=== PATIENT | female | born 1940 | race Caucasian/White ===

== ENCOUNTER 2018-05-05 18:07 | Inpatient (IN) | payer OTHER ==
[~2018-05-05] VITALS: Ht 152.4 cm; Wt 55.9 kg
[~2018-05-05 18:07] MED LIST: ADVAIR 100-501 EACH IH; ADVAIR 250/501 DISK IH; AMLODIPINE BESY10 MG PO; APRESOLINE25 MG PO; AVELOX400 MG PO; DONEPEZIL HCL5 MG PO; FLORASTOR250 MG PO; INDERIDE 40/1 TABLET PO; LEVAQUIN500 MG PO; LITE COAT ASPI325 M1 PO; LITE COAT ASPI325 MG PO; NORVASC5 MG PO; PLAVIX75 MG PO; PRAVASTATIN SOD10 MG PO; PROVENTIL2.5 MG/3 M IH; SPIRIVA1 INHALATI IH; VITAMIN B12 100MCG PO; ZESTRIL,PRINIV2.5 MG PO
[2018-05-05] MEDS ORDERED: NAMZARIC 28 MG1 EACH PO (18:30)
[2018-05-05] MEDS ORDERED: VENTOLIN HFA18 GM IH (18:32)
[2018-05-05] MEDS ORDERED: HYDROCHLOROTHIA50 MG PO (18:33)
[2018-05-05 19:20] LABS: HEMATOCRIT 35.8 % (36.0-46.0); HEMOGLOBIN 11.6 G/DL (11.9-15.5); MCHC 32.4 G/DL (30.0-36.0); MCV 83.4 FL (83-99); PLATELET COUNT 118 K/uL (156-360); RBC DIS.WIDTH-CV 15.8 % (11.8-14.6); RBC DIS.WIDTH-SD 47.7 % (39-53); RED BLOOD COUNT 4.29 M/uL (3.80-5.20); WHITE BLOOD COUNT 5.9 K/uL (4.1-10.2)
[2018-05-05 19:42] LABS: APPEARANCE CLEAR ((CLEAR)); BILIRUBIN NEGATIVE; BLOOD NEGATIVE; COLOR YELLOW ((YELLOW)); GLUCOSE (STRIP) NEGATIVE; KETONES NEGATIVE; LEUKOCYTES NEGATIVE; NITRITE NEGATIVE; PROTEIN (STRIP) NEGATIVE; SPECIFIC GRAVITY 1.021 (1.000-1.030); UCUL ADDED? NO
[2018-05-05 19:42] LABS: CHLORIDE 109 mEq/L (99-109); POTASSIUM 3.6 mEq/L (3.7-5.4); SODIUM 146 mEq/L (136-147)
[2018-05-05 19:44] LABS: GLUCOSE 138 mg/dL (70-99)
[2018-05-05 19:48] LABS: CREATININE 0.7 mg/dL (0.6-1.3); GFR ESTIMATE (CALCULATED) > 59 mL/min/
[2018-05-05 19:49] LABS: UREA NITROGEN (BUN) 24 mg/dL (9-23)
[2018-05-05 21:15] LABS: ALBUMIN 3.5 g/dL (3.2-4.8)
[2018-05-05 21:18] LABS: TOTAL PROTEIN 6.7 g/dL (6.4-8.3)
[2018-05-05 21:20] LABS: TOTAL BILIRUBIN 0.3 mg/dL (0.0-1.0)
[2018-05-05 21:21] LABS: ALKALINE PHOSPHATASE 103 IU/L (3-129)
[2018-05-05 21:23] LABS: AST (GOT) 17 IU/L (2-34); DIRECT BILIRUBIN 0.1 mg/dL (0.0-0.3)
[2018-05-05 21:24] LABS: ALT (GPT) 8 IU/L (3-49)
[2018-05-05] MEDS ORDERED: NORVASC10 MG PO (23:36)
[2018-05-06 00:12] VITALS: BP 171/83
[2018-05-06 06:06] LABS: HEMATOCRIT 33.2 % (36.0-46.0); HEMOGLOBIN 10.7 G/DL (11.9-15.5); MCH 26.8 PG (29.0-34.0); MCHC 32.2 G/DL (30.0-36.0); PLATELET COUNT 105 K/uL (156-360); RBC DIS.WIDTH-CV 15.7 % (11.8-14.6); RBC DIS.WIDTH-SD 47.8 % (39-53); WHITE BLOOD COUNT 4.9 K/uL (4.1-10.2)
[2018-05-06 06:29] LABS: CHLORIDE 107 MEQ/L (99-109); CREATININE 0.5 MG/DL (0.6-1.3); GFR ESTIMATE (CALCULATED) > 59 mL/min/; POTASSIUM 3.2 MEQ/L (3.7-5.4); SODIUM 141 MEQ/L (136-147); UREA NITROGEN (BUN) 15 mg/dL (9-23)
[2018-05-06 06:31] LABS: GLUCOSE 86 mg/dL (70-99)
[2018-05-06 07:54] VITALS: BP 186/80
[2018-05-06 08:35] LABS: THYROTROPIN (TSH) 1.8 MIU/L (0.4-5.5)
[2018-05-06 08:38] LABS: FOLIC ACID (FOLATE) 6.1 NG/ML (5.0-22.0)
[2018-05-06 09:14] LABS: MAGNESIUM 1.6 mg/dl (1.3-2.7)
[2018-05-06 10:50] VITALS: BP 174/80
[2018-05-06 12:10] VITALS: BP 144/64
[2018-05-06 16:44] VITALS: BP 144/67
[2018-05-06 22:51] VITALS: BP 163/75
[2018-05-07 07:46] VITALS: BP 166/76
[2018-05-07 16:20] VITALS: BP 116/57
[2018-05-08 00:12] VITALS: BP 136/62
[2018-05-08 06:13] LABS: HEMATOCRIT 34.1 % (36.0-46.0); MCH 26.7 PG (29.0-34.0); MCHC 32.3 G/DL (30.0-36.0); MCV 82.8 FL (83-99); PLATELET COUNT 106 K/uL (156-360); RBC DIS.WIDTH-CV 15.9 % (11.8-14.6); RBC DIS.WIDTH-SD 47.9 % (39-53); RED BLOOD COUNT 4.12 M/uL (3.80-5.20); WHITE BLOOD COUNT 6.3 K/uL (4.1-10.2)
[2018-05-08 06:34] LABS: CHLORIDE 105 MEQ/L (99-109); CREATININE 0.6 MG/DL (0.6-1.3); GFR ESTIMATE (CALCULATED) > 59 mL/min/; GLUCOSE 94 mg/dL (70-99); POTASSIUM 3.3 MEQ/L (3.7-5.4); SODIUM 142 MEQ/L (136-147); UREA NITROGEN (BUN) 14 mg/dL (9-23)
[2018-05-08 07:05] VITALS: BP 157/68
[2018-05-08 15:34] VITALS: BP 121/59
[2018-05-09 00:25] VITALS: BP 123/63
[2018-05-09 06:06] LABS: BASOPHIL (%) 0.5 % (0-1); EOSINOPHIL COUNT 0.1 K/uL (0-0.3); HEMATOCRIT 35.3 % (36.0-46.0); HEMOGLOBIN 11.2 G/DL (11.9-15.5); IMMATURE GRANULOCYTE (%) 0.2 % (0.0-0.7); LYMPHOCYTE (%) 15.2 % (15-42); LYMPHOCYTE COUNT 0.9 K/uL (1.0-2.8); MCH 26.7 PG (29.0-34.0); MCHC 31.7 G/DL (30.0-36.0); MCV 84.2 FL (83-99); MONOCYTE (%) 7.4 % (3-12); MONOCYTE COUNT 0.5 K/uL (0-0.8); NEUTROPHIL (%) 75.7 % (45-76); NEUTROPHIL COUNT 4.6 K/uL (1.8-6.4); PLATELET COUNT 110 K/uL (156-360); RBC DIS.WIDTH-CV 16.1 % (11.8-14.6); RBC DIS.WIDTH-SD 49.9 % (39-53); RED BLOOD COUNT 4.19 M/uL (3.80-5.20); WHITE BLOOD COUNT 6.1 K/uL (4.1-10.2)
[2018-05-09 06:31] LABS: CHLORIDE 107 MEQ/L (99-109); CREATININE 0.5 MG/DL (0.6-1.3); GFR ESTIMATE (CALCULATED) > 59 mL/min/; GLUCOSE 84 mg/dL (70-99); SODIUM 145 MEQ/L (136-147); UREA NITROGEN (BUN) 13 mg/dL (9-23)
[2018-05-09 06:55] VITALS: BP 188/98
[2018-05-09 07:00] VITALS: BP 176/80
[2018-05-09 15:40] VITALS: BP 144/70
[2018-05-10 00:03] VITALS: BP 135/65
[2018-05-10 07:30] VITALS: BP 152/71
[2018-05-10] MEDS ORDERED: CEFTIN500 MG PO (09:28)
== END 2018-05-10 14:24 | DRG 190 ==
LOC: EME 18:07 → EDOF 23:30 → 5EAST 23:30
PROVIDERS: Emergency Medicine; Hospitalist; Nurse Practitioner Adult Health; Student in an Organized Health Care Education/Training Program
DX: J44.0 Chronic obstructive pulmonary disease with (acute) lower respiratory infection (principal); J18.9 Pneumonia, unspecified organism; F17.200 Nicotine dependence, unspecified, uncomplicated; J98.11 Atelectasis; K76.89 Other specified diseases of liver; E86.0 Dehydration; I10 Essential (primary) hypertension; E78.5 Hyperlipidemia, unspecified; Z86.73 Personal history of transient ischemic attack (TIA), and cerebral infarction without residual deficits; F01.50 Vascular dementia, unspecified severity, without behavioral disturbance, psychotic disturbance, mood disturbance, and anxiety; F05 Delirium due to known physiological condition; E87.6 Hypokalemia; E83.42 Hypomagnesemia; F02.80 Dementia in other diseases classified elsewhere, unspecified severity, without behavioral disturbance, psychotic disturbance, mood disturbance, and anxiety; Z79.82 Long term (current) use of aspirin
CPT/HCPCS: 36415; 70450; 71045; 71046; 71250; 80048; 80053; 80061; 80076; 81003; 82306; 82607; 82746; 83605; 83735; 84443; 85025; 85027; 87040; 92610 GN; 94640; 94669; 94760; 94799; 99281; 99285; J0360; J0456; J0696; J1644; J3475; J7030